=== PATIENT | female | born 1945 | race African-American/Black ===

== ENCOUNTER 2018-01-20 10:49 | Inpatient (IN) ==
[2018-01-20] MEDS: DEXTROSE 5% NACL 0.45% 1,000 ML IV SCH (11:54)
[2018-01-20 12:49] LABS: Basophils % 0.4 % (0.0-0.8); Eosinophils # 0.3 10*3/uL (0.0-0.87); Eosinophils % 3.9 % (0.00-10.9); Hematocrit 33.1 VOL% (35.7-47.0); Hemoglobin 9.8 GM/DL (12.0-16.0); Immature Granulocytes % 0.3 %; Immature Granulocytes Absolute 0.02 #; Lymphocytes # 1.5 10*3/uL (1.4-4.0); Lymphocytes % 21.1 % (21.3-54.2); Mean Corpuscular HGB Conc 29.6 GM/DL (32-36); Mean Corpuscular Hemoglobin 23 PG (27-34); Mean Corpuscular Volume 77.7 FL (87-102); Mean Platelet Volume 10.7 FL (9.6-12.0); Monocytes # 0.7 10*3/uL (0.11-0.8); Monocytes % 9.4 % (1.7-12.7); Neutrophils # 4.6 10*3/uL (1.4-7.4); Neutrophils % 64.9 % (38.7-73.9); Platelet Count 318 T/CUMM (130-400); Red Blood Count 4.26 MC/CUMM (3.8-5.5); Red Cell Distribution Width 18.3 % (9.3-17.3); White Blood Count 7.1 T/CUMM (4-12)
[2018-01-20 12:55] LABS: Apearance,Urine CLEAR (Clear); Bilirubin,Urine Negative (Negative); Blood, Urine Negative (Negative); Glucose,Urine (UA) 50 mg/dL (Negative); Ketones,Urine Negative (Negative); Mucus,Urine Occasional /LPF (Occasional); Nitrite,Urine Negative (Negative); Protein,Urine Negative; RBC,Urine <1 /HPF (0-4); Squamous Epithelial Cell,Urine Occasional /HPF (0-10); Urine Color Yellow (Yellow); Urine Specific Gravity 1.021 (1.001-1.035); WBC,Urine 1 /HPF (0-6)
[2018-01-20 12:57] LABS: PT Patient Result 10.9 SECS; Partial Thromboplastin Time 27.2 SECS (0-40)
[2018-01-20 13:08] LABS: Albumin 3.2 G/DL (3.4-5.0); Bilirubin,Total 0.5 MG/DL (0.2-1.0); Calcium 8.9 MG/DL (8.5-10.1); Osmolality,Calculated 282.3 MOS/KG (273-304); Potassium 3.7 MMOL/L (3.5-5.1); Total Protein 7.1 G/DL (6.4-8.3)
[2018-01-20] MEDS ORDERED: ONDANSETRON 4 MG/2 ML VIAL IV PRN (14:21)
[2018-01-20] MEDS ORDERED: GLUCAGON 1 MG VIAL IM PRN (14:44)
[2018-01-20] MEDS ORDERED: PNEUMOCOCCAL VACCINE (13 VALENT) 0.5 ML SYRINGE IM ONE (15:44)
[2018-01-20] MEDS: INSULIN REGULAR 100 UNIT/ML SUBCUT SCH ×2 (17:17→23:18)
[2018-01-20] MEDS: DEXTROSE 50% 25 GM/50 ML VIAL IV PRN (19:33)
[2018-01-20] MEDS: DONEPEZIL 10 MG TABLET PO SCH (21:18)
[2018-01-20] MEDS: CYPROHEPTADINE 4 MG TABLET PO SCH (21:18)
[2018-01-21] MEDS: DEXTROSE 5% NACL 0.45% 1,000 ML IV SCH (02:49)
[2018-01-21] MEDS: DEXTROSE 50% 25 GM/50 ML VIAL IV PRN ×3 (03:35→07:24)
[2018-01-21] MEDS: ACETAMINOPHEN 325 MG TABLET PO PRN (04:02)
[2018-01-21 04:52] LABS: Basophils % 0.4 % (0.0-0.8); Eosinophils # 0.3 10*3/uL (0.0-0.87); Eosinophils % 4.1 % (0.00-10.9); Hematocrit 26.9 VOL% (35.7-47.0); Immature Granulocytes % 0.3 %; Immature Granulocytes Absolute 0.02 #; Lymphocytes # 2.1 10*3/uL (1.4-4.0); Lymphocytes % 30.8 % (21.3-54.2); Mean Corpuscular HGB Conc 29.7 GM/DL (32-36); Mean Corpuscular Hemoglobin 23 PG (27-34); Mean Corpuscular Volume 76.6 FL (87-102); Mean Platelet Volume 10.9 FL (9.6-12.0); Monocytes # 0.7 10*3/uL (0.11-0.8); Monocytes % 10.5 % (1.7-12.7); Neutrophils # 3.6 10*3/uL (1.4-7.4); Neutrophils % 53.9 % (38.7-73.9); Platelet Count 265 T/CUMM (130-400); Red Blood Count 3.51 MC/CUMM (3.8-5.5); Red Cell Distribution Width 18.4 % (9.3-17.3); White Blood Count 6.8 T/CUMM (4-12)
[2018-01-21 05:21] LABS: Osmolality,Calculated 286.7 MOS/KG (273-304); Potassium 3.5 MMOL/L (3.5-5.1)
[2018-01-21] MEDS ORDERED: DEXTROSE 5% NACL 0.45% 1,000 ML IV SCH (05:30)
[2018-01-21] MEDS: DIGOXIN 0.25 MG TABLET PO SCH (08:42)
[2018-01-21] MEDS: CYPROHEPTADINE 4 MG TABLET PO SCH ×3 (08:43→21:21)
[2018-01-21] MEDS: ANASTROZOLE 1 MG TABLET PO SCH (08:43)
[2018-01-21] MEDS: PANTOPRAZOLE 40 MG TABLET PO SCH (08:43)
[2018-01-21] MEDS: INSULIN REGULAR 100 UNIT/ML SUBCUT SCH ×4 (09:35→21:20)
[2018-01-21] MEDS: DEXTROSE 5% KCL 20 MEQ 20 MEQ/1,000 ML BAG IV SCH ×2 (10:13→21:07)
[2018-01-21] MEDS: ENOXAPARIN 40 MG/0.4 ML SYRINGE SUBCUT SCH (10:14)
[2018-01-21] MEDS: DEXTROSE 10% 1,000 ML IV SCH (10:42)
[2018-01-21] MEDS: FUROSEMIDE 20 MG/2 ML VIAL IV SCH (14:52)
[2018-01-21] MEDS ORDERED: CARVEDILOL 25 MG TABLET PO SCH (21:00)
[2018-01-21] MEDS: CARVEDILOL 12.5 MG TABLET PO SCH (21:21)
[2018-01-21] MEDS: ATORVASTATIN 80 MG TABLET PO SCH (21:21)
[2018-01-21] MEDS: DONEPEZIL 10 MG TABLET PO SCH (21:21)
[2018-01-22] MEDS: DEXTROSE 5% KCL 20 MEQ 20 MEQ/1,000 ML BAG IV SCH ×2 (06:38→16:47)
[2018-01-22 06:47] LABS: Basophils % 0.6 % (0.0-0.8); Eosinophils # 0.4 10*3/uL (0.0-0.87); Eosinophils % 5.6 % (0.00-10.9); Hematocrit 27.7 VOL% (35.7-47.0); Hemoglobin 8.2 GM/DL (12.0-16.0); Immature Granulocytes % 0.6 %; Immature Granulocytes Absolute 0.04 #; Lymphocytes # 1.7 10*3/uL (1.4-4.0); Lymphocytes % 24.8 % (21.3-54.2); Mean Corpuscular HGB Conc 29.6 GM/DL (32-36); Mean Corpuscular Hemoglobin 23 PG (27-34); Mean Corpuscular Volume 76.9 FL (87-102); Mean Platelet Volume 10.6 FL (9.6-12.0); Monocytes # 0.8 10*3/uL (0.11-0.8); Monocytes % 10.8 % (1.7-12.7); Neutrophils % 57.6 % (38.7-73.9); Platelet Count 260 T/CUMM (130-400); Red Cell Distribution Width 18.3 % (9.3-17.3); White Blood Count 6.9 T/CUMM (4-12)
[2018-01-22 07:22] LABS: Calcium 8.2 MG/DL (8.5-10.1); Osmolality,Calculated 283.3 MOS/KG (273-304); Potassium 4.3 MMOL/L (3.5-5.1)
[2018-01-22 07:32] LABS: % Iron Saturation 7.1 % (18-50); Ferritin 83.9 ng/ml (8-252)
[2018-01-22 07:34] LABS: Folate 12.1 NG/ML (5.4-24.0); Vitamin B12 350 PG/ML (211-911)
[2018-01-22 07:37] LABS: Risk Ratio 2.28
[2018-01-22] MEDS: INSULIN REGULAR 100 UNIT/ML SUBCUT SCH ×4 (07:40→20:28)
[2018-01-22 08:16] LABS: Sedimentation Rate-Westergren 75 MM/HR (0-30)
[2018-01-22] MEDS: ISOSORBIDE DINITRATE 10 MG TABLET PO SCH (08:31)
[2018-01-22] MEDS: CARVEDILOL 12.5 MG TABLET PO SCH ×2 (08:31→20:28)
[2018-01-22] MEDS: DIGOXIN 0.25 MG TABLET PO SCH (08:31)
[2018-01-22] MEDS: ENOXAPARIN 40 MG/0.4 ML SYRINGE SUBCUT SCH (08:31)
[2018-01-22] MEDS: CYPROHEPTADINE 4 MG TABLET PO SCH ×3 (08:31→20:28)
[2018-01-22] MEDS: ANASTROZOLE 1 MG TABLET PO SCH (08:31)
[2018-01-22] MEDS: PANTOPRAZOLE 40 MG TABLET PO SCH (08:31)
[2018-01-22] MEDS: FUROSEMIDE 20 MG/2 ML VIAL IV SCH (08:31)
[2018-01-22] MEDS: ACETAMINOPHEN 325 MG TABLET PO PRN (17:10)
[2018-01-22] MEDS: ATORVASTATIN 80 MG TABLET PO SCH (20:27)
[2018-01-22] MEDS: DONEPEZIL 10 MG TABLET PO SCH (20:28)
[2018-01-22] MEDS: DEXTROSE 10% 1,000 ML IV SCH (22:52)
[2018-01-23] MEDS: DEXTROSE 5% KCL 20 MEQ 20 MEQ/1,000 ML BAG IV SCH ×3 (03:12→14:46)
[2018-01-23] MEDS: INSULIN REGULAR 100 UNIT/ML SUBCUT SCH ×4 (09:06→23:21)
[2018-01-23] MEDS: FUROSEMIDE 20 MG/2 ML VIAL IV SCH (09:06)
[2018-01-23] MEDS: ENOXAPARIN 40 MG/0.4 ML SYRINGE SUBCUT SCH (09:06)
[2018-01-23] MEDS: DIGOXIN 0.25 MG TABLET PO SCH (09:07)
[2018-01-23] MEDS: ANASTROZOLE 1 MG TABLET PO SCH (09:07)
[2018-01-23] MEDS: ISOSORBIDE DINITRATE 10 MG TABLET PO SCH (09:07)
[2018-01-23] MEDS: CYPROHEPTADINE 4 MG TABLET PO SCH ×3 (09:07→21:33)
[2018-01-23] MEDS: PANTOPRAZOLE 40 MG TABLET PO SCH (09:08)
[2018-01-23] MEDS: ASPIRIN EC 81 MG TABLET PO SCH (09:08)
[2018-01-23] MEDS: CARVEDILOL 12.5 MG TABLET PO SCH ×2 (09:08→21:33)
[2018-01-23 10:08] LABS: Hemoglobin A1 (Alkaline) 97.7 % (96.5-98.5); Hemoglobin A2 (Alkaline) 2.3 % (1.5-3.5)
[2018-01-23] MEDS: DEXTROSE 10% 1,000 ML IV SCH (11:43)
[2018-01-23] MEDS ORDERED: TUBERCULIN SKIN TEST 0.1 ML SYRINGE INTRADERM ONE (13:42)
[2018-01-23] MEDS: DONEPEZIL 10 MG TABLET PO SCH (21:33)
[2018-01-23] MEDS: ATORVASTATIN 80 MG TABLET PO SCH (21:33)
[2018-01-24] MEDS: INSULIN REGULAR 100 UNIT/ML SUBCUT SCH ×5 (07:59→20:24)
[2018-01-24] MEDS: ISOSORBIDE DINITRATE 10 MG TABLET PO SCH (08:26)
[2018-01-24] MEDS: ANASTROZOLE 1 MG TABLET PO SCH (08:26)
[2018-01-24] MEDS: ASPIRIN EC 81 MG TABLET PO SCH (08:26)
[2018-01-24] MEDS: DIGOXIN 0.25 MG TABLET PO SCH (08:26)
[2018-01-24] MEDS: ENOXAPARIN 40 MG/0.4 ML SYRINGE SUBCUT SCH (08:27)
[2018-01-24] MEDS: FUROSEMIDE 20 MG/2 ML VIAL IV SCH (08:27)
[2018-01-24] MEDS: PANTOPRAZOLE 40 MG TABLET PO SCH ×2 (08:27→08:37)
[2018-01-24] MEDS: CARVEDILOL 12.5 MG TABLET PO SCH ×2 (08:27→20:24)
[2018-01-24] MEDS: CYPROHEPTADINE 4 MG TABLET PO SCH ×3 (08:27→20:24)
[2018-01-24] MEDS: DEXTROSE 5% KCL 20 MEQ 20 MEQ/1,000 ML BAG IV SCH (11:17)
[2018-01-24] MEDS: ACETAMINOPHEN 325 MG TABLET PO PRN (17:20)
[2018-01-24] MEDS: ATORVASTATIN 80 MG TABLET PO SCH (20:24)
[2018-01-24] MEDS: DONEPEZIL 10 MG TABLET PO SCH (20:24)
[2018-01-25] MEDS: INSULIN REGULAR 100 UNIT/ML SUBCUT SCH ×2 (08:15→13:00)
[2018-01-25] MEDS: FUROSEMIDE 20 MG/2 ML VIAL IV SCH (08:16)
[2018-01-25] MEDS: CARVEDILOL 12.5 MG TABLET PO SCH (08:19)
[2018-01-25] MEDS: ENOXAPARIN 40 MG/0.4 ML SYRINGE SUBCUT SCH (08:19)
[2018-01-25] MEDS: ASPIRIN EC 81 MG TABLET PO SCH (08:19)
[2018-01-25] MEDS: PANTOPRAZOLE 40 MG TABLET PO SCH (08:19)
[2018-01-25] MEDS: DIGOXIN 0.25 MG TABLET PO SCH (08:19)
[2018-01-25] MEDS: CYPROHEPTADINE 4 MG TABLET PO SCH (08:19)
[2018-01-25] MEDS: ISOSORBIDE DINITRATE 10 MG TABLET PO SCH (08:20)
[2018-01-25] MEDS: ANASTROZOLE 1 MG TABLET PO SCH (08:20)
[2018-01-25 12:03] VITALS: BP 97/54
== END 2018-01-25 13:10 | disposition home health service (06) | DRG 638 ==
LOC: EDBD → EDUNIT# → N.ED 10:49 → N.EDINP 13:15 → N.4E 14:13
PROVIDERS: ADMIT Hospitalist; ATTEND Hospitalist

== ENCOUNTER 2018-03-31 18:53 | Inpatient (IN) ==
[2018-03-31] MEDS ORDERED: MORPHINE 4 MG/1 ML VIAL IV STA (19:48)
[2018-03-31] MEDS ORDERED: methylPREDNISolone SOD SUC 125 MG/2 ML VIAL IV STA (19:48)
[2018-03-31] MEDS ORDERED: FUROSEMIDE 100 MG/10 ML VIAL IV STA (19:48)
[2018-03-31] MEDS ORDERED: ONDANSETRON 4 MG/2 ML VIAL IV STA (19:48)
[2018-03-31] MEDS ORDERED: ALBUTEROL 2.5 MG/3 ML NEB RESP TX SCH (20:00)
[2018-03-31 20:47] LABS: Basophils % 0.5 % (0.0-0.8); Eosinophils # 0.1 10*3/uL (0.0-0.87); Eosinophils % 1.7 % (0.00-10.9); Hematocrit 27.3 VOL% (35.7-47.0); Hemoglobin 8.4 GM/DL (12.0-16.0); Immature Granulocytes % 0.3 %; Immature Granulocytes Absolute 0.02 #; Lymphocytes # 1.6 10*3/uL (1.4-4.0); Mean Corpuscular HGB Conc 30.8 GM/DL (32-36); Mean Corpuscular Hemoglobin 23 PG (27-34); Mean Corpuscular Volume 75.2 FL (87-102); Mean Platelet Volume 10.4 FL (9.6-12.0); Monocytes # 0.6 10*3/uL (0.11-0.8); Neutrophils # 3.9 10*3/uL (1.4-7.4); Neutrophils % 62.5 % (38.7-73.9); Platelet Count 266 T/CUMM (130-400); Red Blood Count 3.63 MC/CUMM (3.8-5.5); Red Cell Distribution Width 16.7 % (9.3-17.3); White Blood Count 6.3 T/CUMM (4-12)
[2018-03-31 21:09] LABS: INR 1.2; PT Patient Result 12.7 SECS
[2018-03-31 21:27] LABS: Apearance,Urine Slightly Hazy (Clear); Bilirubin,Urine Negative (Negative); Blood, Urine Negative (Negative); Glucose,Urine (UA) Negative (Negative); Hyaline Casts,Urine 3 /LPF (0-3); Ketones,Urine Negative (Negative); Mucus,Urine Few /LPF (Occasional); Nitrite,Urine Negative (Negative); Protein,Urine 100 MG/DL; RBC,Urine 1 /HPF (0-4); Squamous Epithelial Cell,Urine Occasional /HPF (0-10); Transitional Epi Cells,Urine Occasional /HPF (<1); Urine Color Amber (Yellow); Urine Specific Gravity 1.024 (1.001-1.035); WBC,Urine 3 /HPF (0-6)
[2018-03-31 21:41] LABS: Albumin 2.7 G/DL (3.4-5.0); Bilirubin,Total 0.4 MG/DL (0.2-1.0); Calcium 8.2 MG/DL (8.5-10.1); Osmolality,Calculated 291.8 MOS/KG (273-304); Potassium 3.9 MMOL/L (3.5-5.1); Total Protein 6.2 G/DL (6.4-8.3)
[2018-04-01] MEDS ORDERED: POTASSIUM CHLORIDE 20 MEQ TABLET PO PRN (00:47)
[2018-04-01] MEDS ORDERED: ONDANSETRON 4 MG/2 ML VIAL IV PRN (00:47)
[2018-04-01] MEDS ORDERED: MORPHINE 4 MG/1 ML VIAL IV PRN (00:47)
[2018-04-01] MEDS ORDERED: GLUCAGON 1 MG VIAL IM PRN (00:47)
[2018-04-01] MEDS ORDERED: DEXTROSE 50% 25 GM/50 ML VIAL IV PRN (00:47)
[2018-04-01] MEDS ORDERED: ACETAMINOPHEN 325 MG TABLET PO PRN (00:47)
[2018-04-01] MEDS ORDERED: PROMETHAZINE 25 MG/1 ML VIAL IM PRN (00:47)
[2018-04-01] MEDS ORDERED: ALBUMIN 25% 50 GM in PREMIX 1 EACH IV ONE (00:47)
[2018-04-01] MEDS: INSULIN REGULAR 100 UNIT/ML SUBCUT SCH ×4 (06:05→23:23)
[2018-04-01 07:17] LABS: Hemoglobin A1C 7.6 % (4.2-6.3)
[2018-04-01 07:34] LABS: Albumin 3.6 G/DL (3.4-5.0); Bilirubin,Total 0.8 MG/DL (0.2-1.0); Calcium 8.6 MG/DL (8.5-10.1); Osmolality,Calculated 292.8 MOS/KG (273-304); Risk Ratio 2.38; Total Protein 6.7 G/DL (6.4-8.3); VLDL CHOLESTEROL 10.6 MG/DL
[2018-04-01] MEDS: ANASTROZOLE 1 MG TABLET PO SCH (08:26)
[2018-04-01] MEDS: ENOXAPARIN 30 MG/0.3 ML SYRINGE SUBCUT SCH (08:26)
[2018-04-01] MEDS: FUROSEMIDE 40 MG/4 ML VIAL IV SCH ×2 (08:26→15:16)
[2018-04-01] MEDS: glipiZIDE 10 MG TABLET PO SCH ×2 (08:26→20:54)
[2018-04-01] MEDS: PANTOPRAZOLE 40 MG TABLET PO SCH ×2 (08:26→08:44)
[2018-04-01] MEDS: DOCUSATE SODIUM 100 MG CAPSULE PO SCH ×3 (08:27→20:54)
[2018-04-01] MEDS: CARVEDILOL 25 MG TABLET PO SCH ×2 (08:27→20:54)
[2018-04-01] MEDS: ASPIRIN EC 81 MG TABLET PO SCH (08:27)
[2018-04-01] MEDS: DIGOXIN 0.125 MG TABLET PO SCH (08:27)
[2018-04-01] MEDS: CYPROHEPTADINE 4 MG TABLET PO SCH ×3 (08:27→20:55)
[2018-04-01] MEDS: SPIRONOLACTONE 25 MG TABLET PO SCH (15:16)
[2018-04-01] MEDS ORDERED: ATORVASTATIN 80 MG TABLET PO SCH (21:00)
[2018-04-02 05:21] LABS: Calcium 8.7 MG/DL (8.5-10.1); Osmolality,Calculated 290.7 MOS/KG (273-304); Potassium 3.8 MMOL/L (3.5-5.1)
[2018-04-02] MEDS: INSULIN REGULAR 100 UNIT/ML SUBCUT SCH ×2 (06:03→11:11)
[2018-04-02] MEDS: PANTOPRAZOLE 40 MG TABLET PO SCH (07:59)
[2018-04-02] MEDS: DOCUSATE SODIUM 100 MG CAPSULE PO SCH (07:59)
[2018-04-02] MEDS: ENOXAPARIN 30 MG/0.3 ML SYRINGE SUBCUT SCH (08:01)
[2018-04-02] MEDS: FUROSEMIDE 40 MG/4 ML VIAL IV SCH (08:01)
[2018-04-02] MEDS: SPIRONOLACTONE 25 MG TABLET PO SCH (08:02)
[2018-04-02] MEDS: CYPROHEPTADINE 4 MG TABLET PO SCH (08:02)
[2018-04-02] MEDS: ASPIRIN EC 81 MG TABLET PO SCH (08:02)
[2018-04-02] MEDS: glipiZIDE 10 MG TABLET PO SCH (08:02)
[2018-04-02] MEDS: ANASTROZOLE 1 MG TABLET PO SCH (08:02)
[2018-04-02] MEDS: CARVEDILOL 25 MG TABLET PO SCH (08:02)
[2018-04-02] MEDS: DIGOXIN 0.125 MG TABLET PO SCH (08:03)
[2018-04-02] MEDS ORDERED: VALSARTAN 80 MG TABLET PO SCH (09:00)
[2018-04-02 12:22] VITALS: BP 110/55
== END 2018-04-02 13:30 | disposition home health service (06) | DRG 291 ==
LOC: EDBD → EDUNIT# → N.ED 18:53 → SUATTDRO 23:41 → N.EDINP 23:41 → N.4E 04-01 00:35
PROVIDERS: ADMIT Internal Medicine; ATTEND Family Medicine